=== PATIENT | male | born 1965 | race Caucasian/White ===

== ENCOUNTER 2018-04-26 12:20 | Emergency (ER) | payer MEDICAID, OTHER ==
[~2018-04-26] VITALS: Ht 175.3 cm; Wt 95.5 kg
[2018-04-26] MEDS ORDERED: DIPH,PERTUSS(ACELL),TET VAC/PF 0.5 ML IM-VACC ONE ×2 (13:00→13:19)
[2018-04-26] MEDS ORDERED: SODIUM CHLORIDE FLUSH 10ML SYR IVF ONE (13:00)
[2018-04-26 13:11] LABS: BASOPHILS # (AUTO) 0.08 x10^3/uL (0-0.1); BASOPHILS % (AUTO) 1 % (0-1); EOSINOPHILS # (AUTO) 0.22 x10^3/uL (0-0.4); EOSINOPHILS % (AUTO) 2 % (1-7); LYMPHOCYTES # (AUTO) 1.87 x10^3/uL (1-3.4); LYMPHOCYTES % (AUTO) 20 % (22-44); MD NO; MEAN CORPUSCULAR HEMOGLOBIN 31.6 pg (27.5-34.5); MEAN CORPUSCULAR HGB CONC 33.8 g/dL (33.2-36.2); MEAN CORPUSCULAR VOLUME 93.3 fL (81-97); MEAN PLATELET VOLUME 8.4 fL (7.4-10.4); MONOCYTES # (AUTO) 0.56 x10^3/uL (0.2-0.8); MONOCYTES % (AUTO) 6 % (2-9); NEUTROPHILS # (AUTO) 6.81 x10^3/uL (1.8-6.8); NEUTROPHILS % (AUTO) 71 % (42-75); PLATELET COUNT 210 x10^3/uL (130-400); RED BLOOD COUNT 5.26 x10^6/uL (4.38-5.82); RED CELL DISTRIBUTION WIDTH 15.6 % (9.4-14.8)
--- NOTE | 2018-04-26 13:14 | NUR ---
REPORT FROM RODRIGUEZ GARCIA.
[2018-04-26 13:22] LABS: ALBUMIN 3.7 g/dL (3.4-5.0); ANION GAP 7 mmol/L (5-15); CHLORIDE 110 mmol/L (98-107); CREATININE 0.79 mg/dL (0.7-1.3)
--- NOTE | 2018-04-26 13:26 | NUR ---
PT MEDICATED PER ORDER. PT TOLERATED WELL.
--- NOTE | 2018-04-26 13:49 | NUR ---
PT OFF THE FLOOR TO RADIOLOGY.
--- NOTE | 2018-04-26 14:31 | NUR ---
PT IS RESTING IN BED WITH EYES CLOSED, RESPIRATIONS EQUAL AND NON LABORED. NAD. PT IS CONNECTED TO THE MONITOR. CALL LIGHT WITHIN REACH.
--- NOTE | 2018-04-26 15:21 | NUR ---
PT OFF THE FLOOR TO RADIOLOGY.
--- NOTE | 2018-04-26 15:31 | NUR ---
PT IS RESTING IN BED WITH EYES CLOSED, RESPIRATIONS EQUAL AND NON LABORED. NAD. PT IS CONNECTED TO THE MONITOR. CALL LIGHT WITHIN REACH.
[2018-04-26] MEDS ORDERED: SODIUM CHLORIDE 0.9% 1,000ML IVBOLUS ONE (16:00)
--- NOTE | 2018-04-26 16:12 | NUR ---
PT IS RESTING IN BED, TALKING WITH STAFF, RESPIRATIONS EQUAL AND NON LABORED. NAD. PT IS CONNECTED TO THE MONITOR. CALL LIGHT WITHIN REACH.
--- NOTE | 2018-04-26 16:31 | NUR ---
REPORT GIVEN TO STEVIE GARCIA AT [facility]. PT WILL BE TRANSFERRED TO [facility] FOR TRAUMA. PT IS ALERT, ORIENTED, NAD. GCS 15.
--- NOTE | 2018-04-26 17:06 | NUR ---
PT URINATED IN THE URINAL.
[2018-04-26 17:07] VITALS: BP 154/85
--- NOTE | 2018-04-26 17:54 | NUR ---
THROUGHPUT: ALL INFORMATION GIVEN TO EMS, INCLUDING IMAGING
--- NOTE | 2018-04-26 17:55 | NUR ---
[facility] PICKED UP PT AND TOOK HIM TO [facility].
== END 2018-04-26 17:57 | disposition short-term general hospital (02) ==
LOC: ED 17:51
DX: S22.41XA Multiple fractures of ribs, right side, initial encounter for closed fracture (principal); S27.0XXA Traumatic pneumothorax, initial encounter; S09.8XXA Other specified injuries of head, initial encounter; S00.81XA Abrasion of other part of head, initial encounter; S00.31XA Abrasion of nose, initial encounter; S80.812A Abrasion, left lower leg, initial encounter; S80.811A Abrasion, right lower leg, initial encounter; F10.129 Alcohol abuse with intoxication, unspecified; E11.9 Type 2 diabetes mellitus without complications; V29.49XA Motorcycle driver injured in collision with other motor vehicles in traffic accident, initial encounter; Y93.89 Activity, other specified; Y92.89 Other specified places as the place of occurrence of the external cause; Y99.8 Other external cause status; Y90.9 Presence of alcohol in blood, level not specified
CPT/HCPCS: 36415; 70450; 71045; 71250; 72125; 80048; 80307; 82040; 85025; 90471; 90715; 93005; 99285; J7030